=== PATIENT | female | born 1995 | race Hispanic/Latino ===

== ENCOUNTER 2019-12-21 01:10 | Emergency (ER) | payer SELFPAY ==
[~2019-12-21] VITALS: Ht 162.6 cm; Wt 93.9 kg
[2019-12-21] MEDS ORDERED: ONDANSETRON HCL INJ 2MG/ML 2ML 2 MG/ML VIAL IV STA (01:36)
[2019-12-21] MEDS ORDERED: FAMOTIDINE 20 MG/2 ML VIAL IV STA (01:36)
[2019-12-21] MEDS ORDERED: DICYCLOMINE HCL 20 MG/2 ML VIAL IM ONE ×2 (01:45→01:48)
[2019-12-21] MEDS ORDERED: SODIUM CHLORIDE 0.9% 1000ML 1,000 ML IV SCH (01:45)
[2019-12-21] MEDS ORDERED: SODIUM CHLORIDE 0.9% 50ML 50 ML ONE (02:41)
[2019-12-21] MEDS ORDERED: IOPAMIDOL 370 MG/ML 200 ML INFUS..BTL INJ ONE (02:42)
[2019-12-21] MEDS ORDERED: FAMOTIDINE20 MG PO (03:10)
[2019-12-21] MEDS ORDERED: ONDANSETRON ODT8 MG PO (03:11)
== END 2019-12-21 03:30 | disposition home or self-care (01) ==
LOC: FSED 01:30
DX: R10.10 Upper abdominal pain, unspecified (principal); R11.2 Nausea with vomiting, unspecified; K29.70 Gastritis, unspecified, without bleeding
CPT/HCPCS: 74177; 99283; J0500; J2405; J7030; Q9967